=== PATIENT | female | born 1940 | race Caucasian/White ===

== ENCOUNTER 2022-04-09 20:54 | Emergency (ER) | payer OTHER ==
[~2022-04-09] VITALS: Ht 167.6 cm; Wt 61.2 kg
[2022-04-09 21:01] VITALS: BP_SYST 134
--- NOTE | 2022-04-09 21:05 | NUR ---
Patient to ER bed H1 to gown for evaluation. Side rails up.
--- NOTE | 2022-04-09 21:08 | NUR ---
ER at bedside examining patient.
--- NOTE | 2022-04-09 21:16 | NUR ---
RECEIVED PATIENT FROM TRIAGE C/O RT FOOT S/P STEPPED ON NAIL 30 MINS PRIOR TO ER ARRI[facility]AL, PT STATED THAT THERE IS SCANT OF BLOOD ON PUNCTURE SITE. PT DENIES TRAUMA. PT AAOX4 NO SON NOTED AND NOT IN ANY DISTRESS. PT SEEN AND EXAMINE BY DR. CUNNINGHAM.
[2022-04-09] MEDS ORDERED: CEPH-548 PO (21:17)
[2022-04-09] MEDS ORDERED: BACITRACIN 1 GM OINT TP ONE ×2 (21:22→21:30)
--- NOTE | 2022-04-09 21:25 | NUR ---
WOUND CARE DONE, PUNCTURE WOUND TO RT FOOT FOOT CLEANSE WITH NS, PAT DRY AND APPLIED BACITRACIN AND BANDAGE APLLIED. PT TOLERATED WELL.
[2022-04-09] MEDS ORDERED: DIPH-TET-PERTUS Vaccine 0.5 ML VIAL (ADACEL) I.M. ONE (21:30)
[2022-04-09 21:41] VITALS: BP_SYST 132
--- NOTE | 2022-04-09 21:43 | NUR ---
DC PT HOME AAOX4, NO SOB NOTED AND NOT IN ANY DISTRESS, DC INSTRUCTION AND PRESCRIPTION WERE GIVEN TO PATIENT ALSO INSTRCUTED TO GO BACK TO ER IF SYMPTOM WORSENING. PT VERBALIZED UNDERSTANDING
== END 2022-04-09 21:41 | disposition home or self-care (01) ==
LOC: SED 20:54
DX: S91.331A Puncture wound without foreign body, right foot, initial encounter (principal); I10 Essential (primary) hypertension; W45.0XXA Nail entering through skin, initial encounter; Y93.H2 Activity, gardening and landscaping; Y92.89 Other specified places as the place of occurrence of the external cause; Y99.8 Other external cause status
CPT/HCPCS: 90715; 99283

== ENCOUNTER 2024-07-11 20:18 | Inpatient (IN) | payer OTHER ==
[~2024-07-11] VITALS: Ht 165.1 cm; Wt 60.3 kg
[~2024-07-11 20:18] MED LIST: CEPH-548 PO
[2024-07-11 20:34] VITALS: BP_SYST 133; PULSE 104; RESP 18; TEMP 101.7; O2SAT 100
[2024-07-11 21:21] LABS: HEMATOCRIT 35.1 % (36-48); HEMOGLOBIN 12.2 g/dL (12.0-16.0); MEAN CORPUSCULAR HEMOGLOBIN 32 pg (27-31); MEAN CORPUSCULAR HGB CONC 35 % (32-36); MEAN CORPUSCULAR VOLUME 93 fL (79.0-98.0); PLATELET COUNT (AUTO) 127 K/uL (130-430); RED BLOOD CELL COUNT(AUTO) 3.78 MIL/uL (4.2-6.2); RED CELL DISTRIBUTION WIDTH 13.4 % (9.0-15.0); WHITE BLOOD COUNT (AUTO) 17.6 K/uL (4.8-10.8)
[2024-07-11 21:43] LABS: ALANINE AMINOTRANSFERASE 21 U/L (12-78); ALBUMIN 3.6 g/dL (3.4-4.8); ANION GAP 7 (5-15); ASPARTATE AMINOTRANSFERASE 24 U/L (10-37); BILIRUBIN,DIRECT 0.4 mg/dL (0.0-0.3); CALCIUM 10.5 mg/dL (8.4-11.0); CARBON DIOXIDE 27 mmol/L (23-29); CHLORIDE 98 mmol/L (98-107); CREATININE 1.92 mg/dL (0.55-1.30); GLUCOSE 127 mg/dL (74-106); POTASSIUM 4.3 mmol/L (3.5-5.1); SODIUM SERUM 132 mmol/L (136-145); TOTAL BILIRUBIN 1.6 mg/dL (0.0-1.0); TOTAL PROTEIN, SERUM 7.3 g/dL (6.4-8.3); UREA NITROGEN, BLOOD 31 mg/dL (8-21)
[2024-07-11 21:52] LABS: BILIRUBIN,URINE 1+ (NEGATIVE); BLOOD, URINE 3+ (NEGATIVE); CLARITY/URINE CLOUDY (CLEAR); COLOR,URINE YELLOW (YELLOW); GLUCOSE,URINE NEGATIVE (NEGATIVE); KETONES,URINE 1+ (NEGATIVE); LEUKOCYTE ESTERASE ,URINE 2+ (NEGATIVE); NITRITE, URINE NEGATIVE (NEGATIVE); PROTEIN URINE 2+ (NEGATIVE); UROBILINOGEN,URINE 0.2 (0.2-1.0)
[2024-07-11 22:26] LABS: BACTERIA,URINE MANY /HPF (None Seen); MUCUS,URINE None Seen /LPF (None Seen); WBC,URINE >100 /HPF (0-3)
[2024-07-11] MEDS: cefTRIAXone 1 GM IVPB PREMIX 50 ML IV ONE (22:26)
[2024-07-11 22:49] LABS: BAND % (MANUAL) 15 % (0-6); BASOPHILS % (MANUAL) 0 % (0-2); EOSINOPHILS % (MANUAL) 0 % (0-7); LYMPHOCYTES % (MANUAL) 7 % (20-46); MONOCYTES % (MANUAL) 6 % (0-11); PLATELET ESTIMATE DECREASED (ADEQUATE)
[2024-07-11 22:50] LABS: OVALOCYTES FEW; TEAR DROP CELLS FEW
[2024-07-11] MEDS ORDERED: AZITHROMYCIN 500 MG/VIAL (ZITHROMAX) IV ONE (23:03)
[2024-07-11] MEDS: AZITHROMYCIN 500 MG in NS 250 ML IV ONE (23:06)
[2024-07-12] MEDS: D5/0.45 NS 1,000 ML IV SCH (06:20)
[2024-07-12] MEDS ORDERED: METO-304 PO (08:30)
[2024-07-12] MEDS ORDERED: ATOR40TA68 PO (08:30)
[2024-07-12] MEDS ORDERED: FURO20TA4 PO (08:30)
[2024-07-12] MEDS ORDERED: SPIR25TA6 PO (08:30)
[2024-07-12 08:45] VITALS: BP_SYST 110; PULSE 74; RESP 18; TEMP 99.3
[2024-07-12 10:00] VITALS: TEMP 99.3; O2SAT 98
[2024-07-12 12:01] VITALS: BP_SYST 103; PULSE 75; RESP 18; TEMP 98.3; O2SAT 98
[2024-07-12] MEDS ORDERED: DIATR MEGLU/DIATRIZ SOD 30 ML SOLUTION PO ONE (14:07)
[2024-07-12 16:00] VITALS: BP_SYST 104; PULSE 76; RESP 16; TEMP 98; O2SAT 97
[2024-07-12] MEDS: AZITHROMYCIN 250 MG in NS 250 ML IV SCH (20:13)
[2024-07-12 20:30] VITALS: BP_SYST 110; PULSE 76; RESP 20; TEMP 98.5; O2SAT 97
[2024-07-12] MEDS ORDERED: cefTRIAXone 1 GM in D5W 50 ML IV SCH (21:00)
[2024-07-12] MEDS ORDERED: AZITHROMYCIN 250 MG in NS 250 ML IV SCH (21:00)
[2024-07-12] MEDS: PIPERACILLIN/TAZO 3.375 GM in D5W 50 ML IV SCH (22:10)
[2024-07-13] VITALS (13 sets, daily range): BP systolic 102–119; PULSE 69–100; RESP 16–20; TEMP 97.2–101; O2SAT 92–98
[2024-07-13 08:08] LABS: BASOPHILS % (AUTO) 0.1 % (0.0-2.0); EOSINOPHILS % (AUTO) 0.2 % (0.0-4.0); HEMATOCRIT 30.3 % (36-48); HEMOGLOBIN 10.5 g/dL (12.0-16.0); LYMPHOCYTES # (AUTO) 0.6 K/uL (1.0-5.5); LYMPHOCYTES % (AUTO) 6.4 % (20.5-51.5); MEAN CORPUSCULAR HEMOGLOBIN 32 pg (27-31); MEAN CORPUSCULAR HGB CONC 35 % (32-36); MEAN CORPUSCULAR VOLUME 93 fL (79.0-98.0); MONOCYTES # (AUTO) 0.9 K/uL (0.0-1.0); MONOCYTES % (AUTO) 9.3 % (1.7-9.3); NEUTROPHILS # (AUTO) 7.8 K/uL (1.8-7.7); PLATELET COUNT (AUTO) 102 K/uL (130-430); RED BLOOD CELL COUNT(AUTO) 3.27 MIL/uL (4.2-6.2); WHITE BLOOD COUNT (AUTO) 9.3 K/uL (4.8-10.8)
[2024-07-13 08:26] LABS: ANION GAP 3 (5-15); CALCIUM 9.6 mg/dL (8.4-11.0); CARBON DIOXIDE 27 mmol/L (23-29); CHLORIDE 97 mmol/L (98-107); CREATININE 1.54 mg/dL (0.55-1.30); GLUCOSE 159 mg/dL (74-106); SODIUM SERUM 127 mmol/L (136-145); UREA NITROGEN, BLOOD 22 mg/dL (8-21)
[2024-07-13] MEDS: TAMSULOSIN HCL 0.4 MG CAP PO SCH (09:24)
[2024-07-13] MEDS: METOPROLOL SUCCINATE 25 MG TAB.SR.24H (TOPROL XL) PO SCH (09:25)
[2024-07-13 11:42] LABS: PROTHROMBIN TIME 10.2 SECS (9.5-12.5)
[2024-07-13] MEDS ORDERED: iohexoL 240 mgI/mL, 50 ML INFUS..BTL IV ONE (17:18)
[2024-07-13] MEDS ORDERED: METOCLOPRAMIDE HCL 10 MG/2 ML VIAL ONE (17:30)
[2024-07-13] MEDS ORDERED: SEVOFLURANE 15 MIN GAS INH ONE (17:30)
[2024-07-13] MEDS ORDERED: LIDOCAINE HCL/PF 1% 10 ML AMPUL INJ ONE (17:30)
[2024-07-13] MEDS ORDERED: NEOSTIGMINE METHYLSULFATE 1 MG/ML, 10 ML VIAL ONE (17:30)
[2024-07-13] MEDS ORDERED: LR 1,000 ML IV.SOLN IV ONE (17:30)
[2024-07-13] MEDS ORDERED: ONDANSETRON HCL 4 MG/2 ML VIAL ONE (17:30)
[2024-07-13] MEDS: ACETAMINOPHEN 325 MG TABLET PO PRN (22:41)
[2024-07-14 00:15] VITALS: BP_SYST 110; PULSE 88; RESP 18; TEMP 98.8; O2SAT 97
[2024-07-14 08:00] VITALS: BP_SYST 108; PULSE 67; RESP 18; TEMP 97.9; O2SAT 100
[2024-07-14 08:06] LABS: ANION GAP 7 (5-15); CALCIUM 9.5 mg/dL (8.4-11.0); CARBON DIOXIDE 26 mmol/L (23-29); CHLORIDE 101 mmol/L (98-107); CREATININE 1.58 mg/dL (0.55-1.30); GLUCOSE 160 mg/dL (74-106); POTASSIUM 4.1 mmol/L (3.5-5.1); SODIUM SERUM 134 mmol/L (136-145); UREA NITROGEN, BLOOD 14 mg/dL (8-21)
[2024-07-14 08:09] LABS: BASOPHILS % (AUTO) 0.1 % (0.0-2.0); EOSINOPHILS % (AUTO) 0.4 % (0.0-4.0); HEMATOCRIT 28.7 % (36-48); HEMOGLOBIN 9.8 g/dL (12.0-16.0); LYMPHOCYTES # (AUTO) 0.5 K/uL (1.0-5.5); LYMPHOCYTES % (AUTO) 6.1 % (20.5-51.5); MEAN CORPUSCULAR HEMOGLOBIN 32 pg (27-31); MEAN CORPUSCULAR HGB CONC 34 % (32-36); MEAN CORPUSCULAR VOLUME 93 fL (79.0-98.0); MONOCYTES # (AUTO) 0.8 K/uL (0.0-1.0); MONOCYTES % (AUTO) 10.3 % (1.7-9.3); NEUTROPHILS # (AUTO) 6.2 K/uL (1.8-7.7); NEUTROPHILS % (AUTO) 83.1 % (40.0-70.0); PLATELET COUNT (AUTO) 92 K/uL (130-430); RED BLOOD CELL COUNT(AUTO) 3.09 MIL/uL (4.2-6.2); RED CELL DISTRIBUTION WIDTH 13.1 % (9.0-15.0); WHITE BLOOD COUNT (AUTO) 7.4 K/uL (4.8-10.8)
[2024-07-14 08:52] VITALS: O2SAT 100
[2024-07-14] MEDS ORDERED: CIPR250T4 PO (10:03)
[2024-07-14 11:10] VITALS: BP_SYST 88; PULSE 71; RESP 15; TEMP 97.9; O2SAT 95
[2024-07-14 11:14] VITALS: BP_SYST 117; PULSE 78; RESP 18; TEMP 97.7; O2SAT 100
== END 2024-07-14 13:10 | disposition home or self-care (01) | DRG 853 ==
LOC: SED 20:18 → STU 22:22
PROVIDERS: ADMIT Specialist; ATTEND Specialist
PROC: BT1D1ZZ Fluoroscopy of Right Kidney, Ureter and Bladder using Low Osmolar Contrast (ICD-10-PCS; 2024-07-13)
PROC: 0T768DZ Dilation of Right Ureter with Intraluminal Device, Via Natural or Artificial Opening Endoscopic (ICD-10-PCS; principal; 2024-07-13 17:34)
DX: A41.9 Sepsis, unspecified organism (principal); J18.9 Pneumonia, unspecified organism; J69.0 Pneumonitis due to inhalation of food and vomit; N13.6 Pyonephrosis; E44.1 Mild protein-calorie malnutrition; N17.8 Other acute kidney failure; E78.5 Hyperlipidemia, unspecified; I11.0 Hypertensive heart disease with heart failure; I50.9 Heart failure, unspecified; Z79.899 Other long term (current) drug therapy; Z88.8 Allergy status to other drugs, medicaments and biological substances; Z68.22 Body mass index [BMI] 22.0-22.9, adult
CPT/HCPCS: 36415; 71045; 76000; 76770; 80048; 80076; 81000; 81001; 81015; 83605; 85007; 85025; 85027; 85610; 85730; 86886; 86900; 86901; 87040; 87081; 87086; 87186; 93005; 97110-GP; 97116-GP; 97530-GP; 99285; C1769; C2625; G0378; J0456; J0696; J2003; J2405; J2543; J2710; J2765; J7050; J7060; J7120; Q9964; Q9966